=== PATIENT | female | born 1990 | race Caucasian/White ===

== ENCOUNTER 2016-11-01 17:43 | Emergency (ER) | payer BC, MEDICAID ==
[2016-11-01] MEDS ORDERED: NS 0.9% 1000 ML* 1,000 ML IV ONE (18:29)
[2016-11-01] MEDS ORDERED: Ondansetron INJ* 2 MG/ML VIAL IV ONE (18:29)
[2016-11-01] MEDS ORDERED: Ondansetron INJ* 2 MG/ML VIAL ONE (18:30)
[2016-11-01 18:42] LABS: Hematocrit 43 % (35-47); Hemoglobin 13.8 g/dl (12.0-16.0); Mean Corpuscular HGB Conc 33 g/dl (31-36); Mean Corpuscular Hemoglobin 26 pg (27-31); Mean Corpuscular Volume 81 fL (80-97); Mean Platelet Volume 9 um3 (7.4-10.4); Red Blood Count 5.26 10^6/ul (4.0-5.4); Red Cell Distribution Width 17 % (10.5-15); White Blood Count 11.2 10^3/ul (3.5-10.8)
[2016-11-01 19:03] LABS: ALT 16 U/L (7-52); AST 15 U/L (13-39); Albumin 4.2 g/dL (3.2-5.2); Alkaline Phosphatase 57 U/L (34-104); Anion Gap 6 mmol/L (2-11); Blood Urea Nitrogen 13 mg/dL (6-24); C Reactive Protein 14.11 mg/L (< 5.00); CO2 Carbon Dioxide 24 mmol/L (22-32); Chloride 104 mmol/L (101-111); EGFR African American 111.7 (>60); EGFR Non-African American 86.9 (>60); Globulin 3.2 g/dL (2-4); Glucose 96 mg/dL (70-100); Potassium 3.7 mmol/L (3.5-5.0); Sodium 134 mmol/L (133-145); Total Protein 7.4 g/dL (6.4-8.9)
[2016-11-01] MEDS ORDERED: Acetaminophen TAB* 325 MG PO ONE (19:24)
[2016-11-01] MEDS ORDERED: Oseltamivir CAP* 75 MG PO ONE (20:14)
[2016-11-01 20:38] VITALS: BP 111/66
--- NOTE | 2016-11-01 20:52 | ED ---
Terrell Villeda Billy, scribed for Johny Maradiaga MD on 11/01/16 at 1854 . Complex/Multi-Sys Presentation - HPI Summary HPI Summary: Patient is a 26 year-old female coming to [facility] presenting with "flu-like" symptoms since yesterday afternoon. She states that it began with nasal congestion and progressed into fever (TMax 102.6F), chills, and rhinorrhea this morning. She also reports a productive cough and diffuse myalgia. Denies any sore throat or urinary symptoms. - History Of Current Complaint Chief Complaint: EDGeneral Time Seen by Provider: 11/01/16 18:10 Hx Obtained From: Patient, Family/[employer] Onset/Duration: Gradual Onset, Lasting Hours, Still Present Timing: Constant Severity Currently: Moderate Severity Initially: Moderate Aggravating Factor(s): n/a Alleviating Factor(s): n/a Associated Signs And Symptoms: Positive: Cough, Fever, Other - chills, myalgia, rhinorrhea, nasal congestion. Negative: Dysuria - Allergies/Home Medications Allergies/Adverse Reactions: Allergies Allergy/AdvReac Type Severity Reaction Status Date / Time No Known Allergies Allergy Verified 11/01/16 17:56 PMH/Surg Hx/FS Hx/Imm Hx Endocrine/Hematology History: Denies: Hx Diabetes, Hx Thyroid Disease Cardiovascular History: Denies: Hx Hypertension Respiratory History: Reports: Hx Asthma Denies: Hx Chronic Obstructive Pulmonary Disease (COPD) GI History: Denies: Hx Ulcer Infectious Disease History: No Infectious Disease History: Denies: Hx Clostridium Difficile, Hx Hepatitis, Hx Human Immunodeficiency Virus (HIV), Hx of Known/Suspected MRSA, Hx Shingles, Hx Tuberculosis, Hx Known/ Suspected VRE, Hx Known/Suspected VRSA, History Other Infectious Disease, Traveled Outside the [place] in Last 30 Days - Family History Known Family History: Positive: Cardiac Disease, Diabetes, Other - pancreatic cancer - Social History Alcohol Use: None Substance Use Type: Reports: None Smoking Status (MU): Former Smoker Type: Cigarettes Amount Used/How Often: 1 pack/week Length of Time of Smoking/Using Tobacco: 5+ years Have You Smoked in the Last Year: No Review of Systems Positive: Fever, Chills Positive: Nasal Discharge. Negative: Sore Throat Positive: Cough Negative: dysuria Positive: Myalgia All Other Systems Reviewed And Are Negative: Yes Physical Exam - Summary Physical Exam Summary: VITAL SIGNS: Reviewed. GENERAL: Patient is a well developed and nourished female who is lying comfortable in the stretcher. Patient is not in any acute respiratory distress. HEAD AND FACE: No signs of trauma. No ecchymosis, hematomas or skull depressions. No sinus tenderness. EYES: PERRLA, EOMI x 2, No injected conjunctiva, no nystagmus. EARS: Hearing grossly intact. Ear canals and tympanic membranes are within normal limits. MOUTH: Oropharynx within normal limits. NOSE: Positive clear runny nose. NECK: Supple, trachea is midline, no adenopathy, no JVD, no carotid bruit, no c- spine tenderness, neck with full ROM. CHEST: Symmetric, no tenderness at palpation LUNGS: Clear to auscultation bilaterally. No wheezing or crackles. CVS: Regular rate and rhythm, S1 and S2 present, no murmurs or gallops appreciated. ABDOMEN: Soft, non-tender. No signs of distention. No rebound no guarding, and no masses palpated. Bowel sounds are normal. EXTREMITIES: FROM in all major joints, no edema, no cyanosis or clubbing. NEURO: Alert and oriented x 3. No acute neurological deficits. Speech is normal and follows commands. SKIN: Dry and warm Triage Information Reviewed: Yes Vital Signs On Initial Exam: Initial Vitals Temp Pulse Resp BP Pulse Ox 102.2 F 124 18 126/73 100 11/01/16 17:49 11/01/16 17:49 11/01/16 17:49 11/01/16 17:49 11/01/16 17:49 Vital Signs Reviewed: Yes Diagnostics - Vital Signs Vital Signs Temp Pulse Resp BP Pulse Ox 11/01/16 17:49 102.2 F 124 18 126/73 100 - Laboratory Lab Results: Lab Results 11/01/16 Range/Units 18:25 WBC 11.2 H (3.5-10.8) 10^3/ul RBC 5.26 (4.0-5.4) 10^6/ul Hgb 13.8 (12.0-16.0) g/dl Hct 43 (35-47) % MCV 81 (80-97) fL MCH 26 L (27-31) pg MCHC 33 (31-36) g/dl RDW 17 H (10.5-15) % Plt Count 189 (150-450) 10^3/ul MPV 9 (7.4-10.4) um3 Neut % (Auto) 76.3 (38-83) % Lymph % (Auto) 9.7 L (25-47) % [place] % (Auto) 13.1 H (1-9) % Eos % (Auto) 0.4 (0-6) % Baso % (Auto) 0.5 (0-2) % Absolute Neuts (auto) 8.6 H (1.5-7.7) 10^3/ul Absolute Lymphs (auto) 1.1 (1.0-4.8) 10^3/ul Absolute Monos (auto) 1.5 H (0-0.8) 10^3/ul Absolute Eos (auto) 0 (0-0.6) 10^3/ul Absolute Basos (auto) 0.1 (0-0.2) 10^3/ul Absolute Nucleated RBC 0.02 10^3/ul Nucleated RBC % 0.2 Result Diagrams: 11/01/16 18:25 11/01/16 18:25 Lab Statement: Any lab studies that have been ordered have been reviewed, and results considered in the medical decision making process. Re-Evaluation - Re-Evaluation First Eval Re-Evaluation Time: 20:16 Change: Improved Complex Multi-Symp Course/Dx Assessment/Plan: Patient is a 26 year-old female coming to [facility] presenting with "flu-like" symptoms since yesterday afternoon. She states that it began with nasal congestion and progressed into fever (TMax 102.6F), chills, and rhinorrhea this morning. She also reports a productive cough and diffuse myalgia. Denies any sore throat or urinary symptoms. Bloodwork WNL except for WBC of 11.2. CRP of 14.11. Influenza A is positive. Patient was given IV fluids and Tylenol for fever, and Tamiflu for influenza. Patient is feeling better, therefore she will be discharged home to follow up with PCP. - Diagnoses Differential Diagnoses/HQI/PQRI: Other - URI, Sinusitis Provider Diagnoses: Influenza A Discharge - Discharge Plan Condition: Stable Disposition: HOME Prescriptions: Oseltamivir CAP* [Tamiflu CAP*] 75 mg PO BID #10 cap Patient Education Materials: Influenza (ED) Referrals: [facility] REFERRAL [Outside] The documentation as recorded by the Terrell andrade Billy accurately reflects the service I personally performed and the decisions made by me, Johny Maradiaga MD.
== END 2016-11-01 20:39 | disposition home or self-care (01) ==
LOC: ED 17:43
DX: J09.X2 Influenza due to identified novel influenza A virus with other respiratory manifestations (principal); Z87.891 Personal history of nicotine dependence
CPT/HCPCS: 36415; 80053; 83605; 84702; 85025; 86140; 87502; 96361; 96374; 99284; A9270-GY; J2405

== ENCOUNTER 2018-03-03 15:42 | Emergency (ER) | payer OTHER ==
[2018-03-03 17:15] LABS: Hematocrit 39 % (35-47); Hemoglobin 13.1 g/dl (12.0-16.0); Mean Corpuscular HGB Conc 33 g/dl (31-36); Mean Corpuscular Hemoglobin 28 pg (27-31); Mean Corpuscular Volume 83 fL (80-97); Mean Platelet Volume 8.8 um3 (7.4-10.4); Platelet Count 210 10^3/ul (150-450); Red Blood Count 4.73 10^6/ul (4.0-5.4); Red Cell Distribution Width 16 % (10.5-15); White Blood Count 11.1 10^3/ul (3.5-10.8)
[2018-03-03 17:18] LABS: ABS Basophils 0.1 10^3/ul (0-0.2); ABS Eosinophils 0.1 10^3/ul (0-0.6); ABS Lymphocytes 2.9 10^3/ul (1.0-4.8); ABS Monocytes 1.2 10^3/ul (0-0.8); ABS Neutrophils 6.4 10^3/ul (1.5-7.7); ABS Nucleated RBC 0 10^3/ul; Eosinophil % 1.1 % (0-6); Lymphocyte % 27.2 % (25-47); Nucleated Red Blood Cells % 0
[2018-03-03 17:32] LABS: EGFR Non-African American 121.8 (>60)
--- NOTE | 2018-03-03 17:41 | RAD ---
HISTORY: Right lower quadrant pain COMPARISONS: None relevant available time dictation TECHNIQUE: Multiple transverse and longitudinal ultrasound images were obtained of the pelvis using grayscale, color Doppler, and M-Mode Doppler imaging using the endovaginal transducer. FINDINGS: UTERUS: The uterus is normal in shape, size, contour, and echotexture. GESTATION: There is a single live intrauterine gestation. The crown-rump length measures 0.89 cm for a gestational age of 7 weeks, 0 days. The EMIL is October 20, 2018. cardiac motion is detected at a rate of 121 beats per minute. movement is not identified. anatomy cannot be assessed secondary to early dates. The amniotic fluid is qualitatively normal. There are no retroplacental fluid collections. CUL-DE-SAC: There is no free fluid within the cul-de-sac. RIGHT OVARY: The right ovary measures 2.7 x 2.2 x 3 cm. LEFT OVARY: The left ovary measures 2.8 x 1.8 x 2.6 cm. BLADDER: The bladder is not well visualized. IMPRESSION: SINGLE LIVE INTRAUTERINE GESTATION AT 7 WEEKS, 0 DAYS BY CROWN-RUMP LENGTH.
[2018-03-03 20:10] VITALS: BP 98/62
--- NOTE | 2018-03-09 00:17 | ED ---
John Paul Villeda Jennifer, scribed for Ganesh Bahena MD on 03/03/18 at 1642 . - HPI Summary HPI Summary: The patient is a 27 year old female who is about 8 weeks and presents with RLQ abdominal pain for a few days. The patient had a Transvaginal US about two weeks ago where her PCP, Dr. Calhoun, noticed something. He advised the patient to go to the ER if there was any right sided pain or discomfort. The patient describes the pain as cramping from the right hip down to the lower abdomen and denies any radiation of pain. She additionally complains of nausea and vomiting. She denies bleeding, discharge. - History of Current Complaint Chief Complaint: EDOBProblems Stated Complaint: ABD PAIN/VOMITING/8 WKS PREG Hx Obtained From: Patient Chief Complaint: Other: - Transvaginal US 2 weeks ago at PCP showed concern for something - patient does not remember. Her PCP advised she go to the ED if she experienced any right-sided pain. Onset/Duration: Started Days Ago - few days, Still Present Timing: Constant Severity: Mild Current Severity: Mild Pain Intensity: 2 Location of Pain: Right Side Character: Cramping Aggravating Factors: Nothing Alleviating Factors: Nothing Associated Signs and Symptoms: Positive: Other: - nausea, vomiting. NEGATIVE: bleeding, discharge - Assessment Hx Now: Yes SAB: 0 IEA: 0 - Additional Pertinent History Maternal Blood Type and Rh: A Positive - Allergies/Home Medications Allergies/Adverse Reactions: Allergies Allergy/AdvReac Type Severity Reaction Status Date / Time No Known Allergies Allergy Verified 03/03/18 16:08 PMH/Surg Hx/FS Hx/Imm Hx Endocrine/Hematology History: Denies: Hx Diabetes, Hx Thyroid Disease Cardiovascular History: Denies: Hx Hypertension Respiratory History: Reports: Hx Asthma Denies: Hx Chronic Obstructive Pulmonary Disease (COPD) GI History: Denies: Hx Ulcer Infectious Disease History: No Infectious Disease History: Denies: Hx Clostridium Difficile, Hx Hepatitis, Hx Human Immunodeficiency Virus (HIV), Hx of Known/Suspected MRSA, Hx Shingles, Hx Tuberculosis, Hx Known/ Suspected VRE, Hx Known/Suspected VRSA, History Other Infectious Disease, Traveled Outside the [place] in Last 30 Days - Family History Known Family History: Positive: Cardiac Disease, Diabetes, Other - pancreatic cancer - Social History Alcohol Use: None Substance Use Type: Reports: None Smoking Status (MU): Former Smoker Type: Cigarettes Amount Used/How Often: 1 pack/week Length of Time of Smoking/Using Tobacco: 5+ years Have You Smoked in the Last Year: No Review of Systems Positive: Abdominal Pain - RLQ, Vomiting, Nausea Genitourinary: Negative - Vaginal bleeding, discharge All Other Systems Reviewed And Are Negative: Yes Physical Exam - Summary Physical Exam Summary: Appearance: Well-appearing, Well-nourished Skin: Warm Eyes: Normal ENT: Normal Neck: Supple, nontender Respiratory: Clear to auscultation Cardiovascular: Normal S1, S2. No murmurs. Normal distal pulses in tibial and radial bilaterally. Abdomen: Gravid abdomen appropriate for age, mild tenderness to right groin area along inguinal ligament without tenderness or masses Musculoskeletal: Normal, Strength/ROM Intact Neurological: Normal, A&Ox3 Psychiatric: Normal General: No acute distress - Physical Exam Triage Information Reviewed: Yes Vital Signs Reviewed: Yes Diagnostics - Vital Signs Vital Signs Temp Pulse Resp BP Pulse Ox 03/03/18 16:08 97.8 F 65 14 97/59 98 - Laboratory Lab Results: Lab Results 03/03/18 03/03/18 03/03/18 Range/Units 17:05 17:05 17:05 WBC 11.1 H (3.5-10.8) 10^3/ul RBC 4.73 (4.0-5.4) 10^6/ul Hgb 13.1 (12.0-16.0) g/dl Hct 39 (35-47) % MCV 83 (80-97) fL MCH 28 (27-31) pg MCHC 33 (31-36) g/dl RDW 16 H (10.5-15) % Plt Count 210 (150-450) 10^3/ul MPV 8.8 (7.4-10.4) um3 Neut % (Auto) 60.0 (38-83) % Lymph % (Auto) 27.2 (25-47) % [place] % (Auto) 11.2 H (0-7) % Eos % (Auto) 1.1 (0-6) % Baso % (Auto) 0.5 (0-2) % Absolute Neuts (auto) 6.4 (1.5-7.7) 10^3/ul Absolute Lymphs (auto) 2.9 (1.0-4.8) 10^3/ul Absolute Monos (auto) 1.2 H (0-0.8) 10^3/ul Absolute Eos (auto) 0.1 (0-0.6) 10^3/ul Absolute Basos (auto) 0.1 (0-0.2) 10^3/ul Absolute Nucleated RBC 0 10^3/ul Nucleated RBC % 0 APTT (26.0-36.3) seconds Sodium (139-145) mmol/L Potassium (3.5-5.0) mmol/L Chloride (101-111) mmol/L Carbon Dioxide (22-32) mmol/L Anion Gap (2-11) mmol/L BUN (6-24) mg/dL Creatinine (0.51-0.95) mg/dL Est GFR ( Amer) (>60) Est GFR (Non-Af Amer) (>60) BUN/Creatinine Ratio (8-20) Glucose (70-100) mg/dL Lactic Acid 0.6 (0.5-2.0) mmol/L Calcium (8.6-10.3) mg/dL Total Bilirubin (0.2-1.0) mg/dL AST (13-39) U/L ALT (7-52) U/L Alkaline Phosphatase (34-104) U/L Total Protein (6.4-8.9) g/dL Albumin (3.2-5.2) g/dL Globulin (2-4) g/dL Albumin/Globulin Ratio (1-3) Beta HCG, Quant mIU/mL Blood Type A Positive Antibody Screen Negative 03/03/18 03/03/18 Range/Units 17:06 17:06 WBC (3.5-10.8) 10^3/ul RBC (4.0-5.4) 10^6/ul Hgb (12.0-16.0) g/dl Hct (35-47) % MCV (80-97) fL MCH (27-31) pg MCHC (31-36) g/dl RDW (10.5-15) % Plt Count (150-450) 10^3/ul MPV (7.4-10.4) um3 Neut % (Auto) (38-83) % Lymph % (Auto) (25-47) % [place] % (Auto) (0-7) % Eos % (Auto) (0-6) % Baso % (Auto) (0-2) % Absolute Neuts (auto) (1.5-7.7) 10^3/ul Absolute Lymphs (auto) (1.0-4.8) 10^3/ul Absolute Monos (auto) (0-0.8) 10^3/ul Absolute Eos (auto) (0-0.6) 10^3/ul Absolute Basos (auto) (0-0.2) 10^3/ul Absolute Nucleated RBC 10^3/ul Nucleated RBC % APTT 29.2 (26.0-36.3) seconds Sodium 134 L (139-145) mmol/L Potassium 3.7 (3.5-5.0) mmol/L Chloride 104 (101-111) mmol/L Carbon Dioxide 23 (22-32) mmol/L Anion Gap 7 (2-11) mmol/L BUN 12 (6-24) mg/dL Creatinine 0.60 (0.51-0.95) mg/dL Est GFR ( Amer) 156.7 (>60) Est GFR (Non-Af Amer) 121.8 (>60) BUN/Creatinine Ratio 20.0 (8-20) Glucose 87 (70-100) mg/dL Lactic Acid (0.5-2.0) mmol/L Calcium 8.7 (8.6-10.3) mg/dL Total Bilirubin 0.30 (0.2-1.0) mg/dL AST 11 L (13-39) U/L ALT 11 (7-52) U/L Alkaline Phosphatase 35 (34-104) U/L Total Protein 6.8 (6.4-8.9) g/dL Albumin 4.1 (3.2-5.2) g/dL Globulin 2.7 (2-4) g/dL Albumin/Globulin Ratio 1.5 (1-3) Beta HCG, Quant 02216.00 mIU/mL Blood Type Antibody Screen Result Diagrams: 03/03/18 17:05 18 17:06 Lab Statement: Any lab studies that have been ordered have been reviewed, and results considered in the medical decision making process. - Additional Comments Diagnostic Additional Comments: Transvaginal US. Interpreted by a radiologist. IMPRESSION: SINGLE LIVE INTRAUTERINE GESTATION AT 7 WEEKS, 0 DAYS BY CROWN-RUMP LENGTH. Dr. Bahena has reviewed this report. Course/Dx - Course Assessment/Plan: ultrasound unremarkable, viable IUP noted, pt in no acute distress with improved symptoms, instructed to fu with OB as scheduled - Diagnoses Provider Diagnoses: Abdominal pain in Discharge - Sign-Out/Discharge Documenting (check all that apply): Discharge/Admit/Transfer - Discharge Plan Condition: Improved Disposition: HOME Patient Education Materials: Nausea and Vomiting in (ED) Referrals: No Primary Care Phys,NOPCP [Primary Care Provider] - Additional Instructions: PLEASE SEE YOUR OB DOCTOR PREVIOUSLY SCHEDULED PLEASE RETURN TO THE EMERGENCY ROOM IF YOU HAVE ANY WORSENING OR CONCERNING SYMPTOMS PLEASE MAKE AN APPOINTMENT FIRST THING IN THE MORNING TO BE SEEN BY YOUR PRIMARY CARE DOCTOR WITHIN 1 WEEK - Billing Disposition and Condition Condition: IMPROVED Disposition: HOME The documentation as recorded by the John Paul andrade Jennifer accurately reflects the service I personally performed and the decisions made by me, Ganesh Bahena MD.
== END 2018-03-03 20:10 | disposition home or self-care (01) ==
LOC: ED 15:42
DX: O26.891 Other specified pregnancy related conditions, first trimester (principal); R10.31 Right lower quadrant pain; Z3A.01 Less than 8 weeks gestation of pregnancy; Z87.891 Personal history of nicotine dependence
CPT/HCPCS: 36415; 76817; 80053; 83605; 84702; 85025; 85730; 86850; 86900; 86901; 99282

== ENCOUNTER 2018-03-04 20:16 | Emergency (ER) | payer OTHER ==
[2018-03-04] MEDS ORDERED: Ondansetron ODT TAB* 4 MG PO ONE (21:04)
[2018-03-04] MEDS ORDERED: NS 0.9% 1000 ML* 1,000 ML IV ONE (21:04)
[2018-03-04 21:44] LABS: ABS Basophils 0.1 10^3/ul (0-0.2); ABS Eosinophils 0 10^3/ul (0-0.6); ABS Lymphocytes 2.4 10^3/ul (1.0-4.8); ABS Monocytes 0.9 10^3/ul (0-0.8); ABS Neutrophils 8.4 10^3/ul (1.5-7.7); ABS Nucleated RBC 0 10^3/ul; Eosinophil % 0.1 % (0-6); Hematocrit 38 % (35-47); Hemoglobin 12.5 g/dl (12.0-16.0); Mean Corpuscular HGB Conc 33 g/dl (31-36); Mean Corpuscular Hemoglobin 27 pg (27-31); Mean Corpuscular Volume 82 fL (80-97); Mean Platelet Volume 9.2 um3 (7.4-10.4); Nucleated Red Blood Cells % 0; Platelet Count 207 10^3/ul (150-450); Red Cell Distribution Width 16 % (10.5-15); White Blood Count 11.8 10^3/ul (3.5-10.8)
[2018-03-04 21:50] LABS: Urine Appearance Clear; Urine Blood Negative (Negative); Urine Color Yellow; Urine Ketones 2+ (Negative); Urine Protein Negative (Negative); Urine Specific Gravity 1.012 (1.010-1.030); Urine Urobilinogen Negative (Negative)
[2018-03-04 21:57] LABS: EGFR Non-African American 124.2 (>60)
--- NOTE | 2018-03-04 22:08 | ED ---
Nausea/Vomiting/Diarrhea HPI - HPI Summary HPI Summary: Patient history of 7 weeks , complains of persistent N/V 3 days. Patient seen here yesterday for N/V, right lower quadrant pain. US TV yesterday indicated IUP at 7 weeks. Patient states right lower quadrant pain is resolved since yesterday. Denies vaginal bleeding/discharge/pain, abdominal pain, urinary symptoms, fever, peripheral edema, SOB, CP, cough, sore throat, change in BM. , history of one miscarriage. Patient blood type A positive. Medical history is none. Abdominal surgical history is none. Patient states medical records show patient has had appendectomy, but states she still has her appendix. Prior [facility] evaluation with ultrasound unremarkable. Next [facility] appointment March 14. - History of Current Complaint Chief Complaint: EDGeneral Stated Complaint: 8 WKS PREG/NAUSEA Time Seen by Provider: 03/04/18 20:44 Hx Obtained From: Patient Hx Last Menstrual Period: 2 weeks ago Onset/Duration: Gradual Onset Timing: Intermittent Episodes Lasting: Severity Currently: None Pain Intensity: 0 Nausea/Vomiting Presence: Nauseated Nausea/Vomiting Duration: 24-36 hours Vomiting Characteristics: Nonbilious Diarrhea Presence: No - Allergies/Home Medications Allergies/Adverse Reactions: Allergies Allergy/AdvReac Type Severity Reaction Status Date / Time No Known Allergies Allergy Verified 03/03/18 16:08 PMH/Surg Hx/FS Hx/Imm Hx Endocrine/Hematology History: Denies: Hx Diabetes, Hx Thyroid Disease Cardiovascular History: Denies: Hx Hypertension Respiratory History: Reports: Hx Asthma Denies: Hx Chronic Obstructive Pulmonary Disease (COPD) GI History: Denies: Hx Ulcer Infectious Disease History: No Infectious Disease History: Denies: Hx Clostridium Difficile, Hx Hepatitis, Hx Human Immunodeficiency Virus (HIV), Hx of Known/Suspected MRSA, Hx Shingles, Hx Tuberculosis, Hx Known/ Suspected VRE, Hx Known/Suspected VRSA, History Other Infectious Disease, Traveled Outside the [place] in Last 30 Days - Family History Known Family History: Positive: Cardiac Disease, Diabetes, Other - pancreatic cancer - Social History Alcohol Use: None Substance Use Type: Reports: None Smoking Status (MU): Former Smoker Type: Cigarettes Amount Used/How Often: 1 pack/week Length of Time of Smoking/Using Tobacco: 5+ years Have You Smoked in the Last Year: No Review of Systems Constitutional: Negative Eyes: Negative ENT: Negative Cardiovascular: Negative Respiratory: Negative Positive: Vomiting, Nausea Genitourinary: Negative Musculoskeletal: Negative Skin: Negative Neurological: Negative Psychological: Normal All Other Systems Reviewed And Are Negative: Yes Physical Exam Triage Information Reviewed: Yes Vital Signs On Initial Exam: Initial Vitals Temp Pulse Resp BP Pulse Ox 98.2 F 74 16 101/66 98 03/04/18 20:20 03/04/18 20:20 03/04/18 20:20 03/04/18 20:20 03/04/18 20:20 Vital Signs Reviewed: Yes Appearance: Positive: Well-Appearing Skin: Positive: Warm Head/Face: Positive: Normal Head/Face Inspection Eyes: Positive: Normal Neck: Positive: Supple Respiratory/Lung Sounds: Positive: Clear to Auscultation Cardiovascular: Positive: Normal Abdomen Description: Positive: Nontender Musculoskeletal: Positive: Normal Neurological: Positive: Normal Psychiatric: Positive: Normal AVPU Assessment: Alert - [place] Coma Scale Best Eye Response: 4 - Spontaneous Best Motor Response: 6 - Obeys Commands Best Verbal Response: 5 - Oriented Coma Scale Total: 15 Diagnostics - Vital Signs Vital Signs Temp Pulse Resp BP Pulse Ox 03/04/18 21:31 106/67 03/04/18 20:20 98.2 F 74 16 101/66 98 - Laboratory Lab Results: Lab Results 03/04/18 03/04/18 03/04/18 Range/Units 21:23 21:23 21:23 WBC 11.8 H (3.5-10.8) 10^3/ul RBC 4.60 (4.0-5.4) 10^6/ul Hgb 12.5 (12.0-16.0) g/dl Hct 38 (35-47) % MCV 82 (80-97) fL MCH 27 (27-31) pg MCHC 33 (31-36) g/dl RDW 16 H (10.5-15) % Plt Count 207 (150-450) 10^3/ul MPV 9.2 (7.4-10.4) um3 Neut % (Auto) 71.5 (38-83) % Lymph % (Auto) 20.0 L (25-47) % [place] % (Auto) 8.0 H (0-7) % Eos % (Auto) 0.1 (0-6) % Baso % (Auto) 0.4 (0-2) % Absolute Neuts (auto) 8.4 H (1.5-7.7) 10^3/ul Absolute Lymphs (auto) 2.4 (1.0-4.8) 10^3/ul Absolute Monos (auto) 0.9 H (0-0.8) 10^3/ul Absolute Eos (auto) 0 (0-0.6) 10^3/ul Absolute Basos (auto) 0.1 (0-0.2) 10^3/ul Absolute Nucleated RBC 0 10^3/ul Nucleated RBC % 0 Sodium 135 L (139-145) mmol/L Potassium 3.5 (3.5-5.0) mmol/L Chloride 104 (101-111) mmol/L Carbon Dioxide 23 (22-32) mmol/L Anion Gap 8 (2-11) mmol/L BUN 11 (6-24) mg/dL Creatinine 0.59 (0.51-0.95) mg/dL Est GFR ( Amer) 159.7 (>60) Est GFR (Non-Af Amer) 124.2 (>60) BUN/Creatinine Ratio 18.6 (8-20) Glucose 88 (70-100) mg/dL Calcium 9.1 (8.6-10.3) mg/dL Total Bilirubin 0.60 (0.2-1.0) mg/dL AST 12 L (13-39) U/L ALT 12 (7-52) U/L Alkaline Phosphatase 41 (34-104) U/L Total Protein 7.1 (6.4-8.9) g/dL Albumin 4.1 (3.2-5.2) g/dL Globulin 3.0 (2-4) g/dL Albumin/Globulin Ratio 1.4 (1-3) Urine Color Yellow Urine Appearance Clear Urine pH 6.0 (5-9) Ur Specific [place] 1.012 (1.010-1.030) Urine Protein Negative (Negative) Urine Ketones 2+ A (Negative) Urine Blood Negative (Negative) Urine Nitrate Negative (Negative) Urine Bilirubin Negative (Negative) Urine Urobilinogen Negative (Negative) Ur Leukocyte Esterase Trace A (Negative) Urine WBC (Auto) Trace(0-5/hpf) (Absent) Urine RBC (Auto) Trace(0-2/hpf) (Absent) Ur Squamous Epith Cells Present A (Absent) Urine Bacteria Absent (Absent) Urine Glucose Negative (Negative) Result Diagrams: 03/04/18 21:23 03/04/18 21:23 Lab Statement: Any lab studies that have been ordered have been reviewed, and results considered in the medical decision making process. Re-Evaluation - Re-Evaluation 1 Re-Evaluation Time: 22:22 Comment: Nausea controlled with Zofran. Naus/Vom/Diarrhea Course/Dx - Course Course Of Treatment: Nausea and vomiting 2-3 days. Pt concerned for dehydration. Vital signs and Labs unremarkable. Ultrasound done yesterday. Nausea controlled with Zofran ODT as we do not have Zofran IV.. Will be given prescription for Phenergan. Follow up with [facility]. - Differential Dx/Diagnosis Provider Diagnoses: Nausea vomiting. Condition At Discharge: Stable Discharge - Sign-Out/Discharge Documenting (check all that apply): Discharge/Admit/Transfer - Discharge Plan Condition: Stable Disposition: HOME Prescriptions: Promethazine TAB* [Phenergan TAB*] 25 mg PO Q8H PRN 5 Days #20 tab PRN Reason: Nausea Patient Education Materials: Nausea and Vomiting in (ED) Referrals: No Primary Care Phys,NOPCP [Primary Care Provider] - Additional Instructions: Follow-up with your [facility]. Return to the ED for any new or worsening symptoms - Billing Disposition and Condition Condition: STABLE Disposition: HOME
[2018-03-04 22:54] VITALS: BP 107/66
== END 2018-03-04 22:55 | disposition home or self-care (01) ==
LOC: ED 20:16
DX: O21.0 Mild hyperemesis gravidarum (principal); Z3A.01 Less than 8 weeks gestation of pregnancy; Z87.891 Personal history of nicotine dependence
CPT/HCPCS: 36415; 80053; 81003; 81015; 85025; 87086; 96360; 99283; A9270-GY

== ENCOUNTER 2018-05-13 17:26 | Emergency (ER) | payer OTHER ==
--- NOTE | 2018-05-13 20:09 | ED ---
- HPI Summary HPI Summary: This is lupe Lee documenting for attending Johny Maradiaga MD. This patient is a 27 year old F presenting to [facility] accompanied by her partner with a chief complaint of intermittent cramping abdominal pain since 10:00 today. The patient reports that the pain typically lasts for about 10 minutes. The patient reports the pain began in her lower abdomen and travelled up the middle of her abdomen. The patient rates the pain 3/10 in severity. Symptoms aggravated by nothing. Symptoms alleviated by nothing. Patient reports normal vaginal discharge. Patient denies vaginal bleeding. The patient is 17 weeks . The patient notes that this is her third and she has two kids at home. - History of Current Complaint Chief Complaint: EDOBProblems Stated Complaint: CRAMPING/17 WKS PREG Time Seen by Provider: 05/13/18 19:50 Hx Obtained From: Patient Onset/Duration: Started Hours Ago, Atraumatic, Still Present Timing: Intermittent Severity: Mild Current Severity: Mild Pain Intensity: 3 Location of Pain: Diffuse Character: Cramping Aggravating Factors: Nothing Alleviating Factors: Nothing Associated Signs and Symptoms: Positive: Vaginal Bleeding or Discharge - normal vaginal discharge, negative vaginal bleeding - Assessment Hx Now: Yes SAB: 0 IEA: 0 - Additional Pertinent History Maternal Blood Type and Rh: A Positive - Allergies/Home Medications Allergies/Adverse Reactions: Allergies Allergy/AdvReac Type Severity Reaction Status Date / Time No Known Allergies Allergy Verified 03/03/18 16:08 Home Medications: Home Medications 21/Iron Fu/Folic Acid [ Complete] 1 tab PO DAILY 05/13/18 [ History Confirmed 05/13/18] PMH/Surg Hx/FS Hx/Imm Hx Endocrine/Hematology History: Denies: Hx Diabetes, Hx Thyroid Disease Cardiovascular History: Denies: Hx Hypertension Respiratory History: Reports: Hx Asthma Denies: Hx Chronic Obstructive Pulmonary Disease (COPD) GI History: Denies: Hx Ulcer Infectious Disease History: No Infectious Disease History: Denies: Hx Clostridium Difficile, Hx Hepatitis, Hx Human Immunodeficiency Virus (HIV), Hx of Known/Suspected MRSA, Hx Shingles, Hx Tuberculosis, Hx Known/ Suspected VRE, Hx Known/Suspected VRSA, History Other Infectious Disease, Traveled Outside the [place] in Last 30 Days - Family History Known Family History: Positive: Cardiac Disease, Diabetes, Other - pancreatic cancer - Social History Alcohol Use: None Substance Use Type: Reports: None Smoking Status (MU): Former Smoker Type: Cigarettes Amount Used/How Often: 1 pack/week Length of Time of Smoking/Using Tobacco: 5+ years Have You Smoked in the Last Year: No Review of Systems Negative: Fever Negative: Epistaxis Positive: Abdominal Pain Genitourinary: Negative - negative vaginal bleeding Positive: discharge - normal vaginal discharge All Other Systems Reviewed And Are Negative: Yes Physical Exam - Summary Physical Exam Summary: VITAL SIGNS: Reviewed. GENERAL: Patient is a well-developed and nourished FEMALE who is lying comfortable in the stretcher. Patient is not in any acute respiratory distress. HEAD AND FACE: No signs of trauma. No ecchymosis, hematomas or skull depressions. No sinus tenderness. EYES: PERRLA, EOMI x 2, No injected conjunctiva, no nystagmus. EARS: Hearing grossly intact. Ear canals and tympanic membranes are within normal limits. MOUTH: Oropharynx within normal limits. NECK: Supple, trachea is midline, no adenopathy, no JVD, no carotid bruit, no c- spine tenderness, neck with full ROM. CHEST: Symmetric, no tenderness at palpation LUNGS: Clear to auscultation bilaterally. No wheezing or crackles. CVS: Regular rate and rhythm, S1 and S2 present, no murmurs or gallops appreciated. ABDOMEN: Soft, non-tender. No signs of distention. No rebound no guarding, and no masses palpated. Bowel sounds are normal. Abdominal distension above the umbilicus secondary to EXTREMITIES: FROM in all major joints, no edema, no cyanosis or clubbing. NEURO: Alert and oriented x 3. No acute neurological deficits. Speech is normal and follows commands. SKIN: Dry and warm - Physical Exam Triage Information Reviewed: Yes Vital Signs Reviewed: Yes Diagnostics - Vital Signs Vital Signs Temp Pulse Resp BP Pulse Ox 05/13/18 19:37 80 109/72 97 05/13/18 17:39 97.6 F 75 16 104/66 98 - Laboratory Result Diagrams: 05/13/18 20:24 05/13/18 20:24 Lab Statement: Any lab studies that have been ordered have been reviewed, and results considered in the medical decision making process. Course/Dx - Course Assessment/Plan: This patient is a 27 year old F presenting to [facility] accompanied by her partner with a chief complaint of intermittent cramping abdominal pain since 10:00 today. The patient reports that the pain typically lasts for about 10 minutes. The patient reports the pain began in her lower abdomen and travelled up the middle of her abdomen. The patient rates the pain 3 /10 in severity. Symptoms aggravated by nothing. Symptoms alleviated by nothing. Patient reports normal vaginal discharge. Patient denies vaginal bleeding. The patient is 17 weeks . The patient notes that this is her third and she has two kids at home. Patient is . Blood test results without any significant abnormality, urinalysis seems to be contaminated. Therefore we will send urine for cultures. heart rate is at 150 bpm. At this time I did not perform a pelvic exam since the patient does have any vaginal discharge. ultrasound performed. The result is pending. In the ED course the patient was hydrated with IV fluids. The patient is here medically stable. I discussed the case Dr. Burciaga form Ob and recommends to repeat urine . Patient will be signed out to Dr. Boland at shift change. If the ultrasound is normal he will consult with HEAD CHAR FILTER TANK TENDER and the patient will be discharged home with follow-up with primary care physician and ENERGY TRADING ANALYST. - Diagnoses Provider Diagnoses: Abdominal cramping, Intrauterine - Provider Notifications Discussed Care Of Patient With: Letty Burciaga Time Discussed With Above Provider: 21:44 Instructed by Provider To: Other - Dr. Burciaga wants the patient to give another urine sample. If the results of this urine sample are normal, she recommends that the patient be discharged home. Discharge - Sign-Out/Discharge Documenting (check all that apply): Patient Departure - Discharge Plan Condition: Stable Disposition: HOME Patient Education Materials: Acute Abdominal Pain (ED) Referrals: [facility] [place] [facility] [Outside] - 2 Days Additional Instructions: RETURN TO ED FOR ANY NEW OR WORSENING SYMPTOMS. - Billing Disposition and Condition Condition: STABLE Disposition: Home
[2018-05-13] MEDS ORDERED: NS 0.9% 1000 ML* 1,000 ML IV ONE (20:11)
[2018-05-13 20:42] LABS: ABS Basophils 0.1 10^3/ul (0-0.2); ABS Eosinophils 0.2 10^3/ul (0-0.6); ABS Lymphocytes 2.9 10^3/ul (1.0-4.8); ABS Monocytes 1.3 10^3/ul (0-0.8); ABS Neutrophils 8.5 10^3/ul (1.5-7.7); ABS Nucleated RBC 0 10^3/ul; Eosinophil % 1.6 % (0-6); Hematocrit 36 % (35-47); Hemoglobin 12.1 g/dl (12.0-16.0); Lymphocyte % 22.5 % (25-47); Mean Corpuscular HGB Conc 33 g/dl (31-36); Mean Corpuscular Hemoglobin 28 pg (27-31); Mean Corpuscular Volume 83 fL (80-97); Mean Platelet Volume 9.4 um3 (7.4-10.4); Nucleated Red Blood Cells % 0.1; Platelet Count 185 10^3/ul (150-450); Red Blood Count 4.38 10^6/ul (4.00-5.40); Red Cell Distribution Width 16 % (10.5-15)
[2018-05-13 21:03] LABS: EGFR Non-African American 129.2 (>60)
[2018-05-13 21:07] LABS: Urine Appearance Clear; Urine Blood Negative (Negative); Urine Color Yellow; Urine Ketones Negative (Negative); Urine Protein Negative (Negative); Urine Red Blood Cell Trace(0-2/hpf) (Absent); Urine Specific Gravity 1.018 (1.010-1.030); Urine Urobilinogen Negative (Negative); Urine White Blood Cell 2+(11-20/hpf) (Absent)
[2018-05-13 22:48] LABS: Urine Appearance Clear; Urine Blood Negative (Negative); Urine Color Yellow; Urine Ketones 1+ (Negative); Urine Protein Negative (Negative); Urine Specific Gravity 1.015 (1.010-1.030); Urine Urobilinogen Negative (Negative)
[2018-05-13 23:17] VITALS: BP 106/70
--- NOTE | 2018-05-13 23:21 | ED ---
Progress - Progress Note Progress Note: Urinalysis came back normal. US was negative. Pt was diagnosed with abdominal cramping and intrauterine . Pt was discharged home and agreeable with this plan. Course/Dx - Diagnoses Provider Diagnoses: Abdominal cramping, Intrauterine Discharge - Sign-Out/Discharge Documenting (check all that apply): Patient Departure - Discharge - Discharge Plan Condition: Stable Disposition: HOME Patient Education Materials: Acute Abdominal Pain (ED) Referrals: [facility] [place] [facility] [Outside] - 2 Days Additional Instructions: RETURN TO ED FOR ANY NEW OR WORSENING SYMPTOMS. - Billing Disposition and Condition Condition: STABLE Disposition: Home
--- NOTE | 2018-05-14 07:56 | RAD ---
HISTORY: Abdominal cramping, 17 weeks . The gestational age by previous ultrasound is: 17 weeks, 2 days COMPARISONS: March 03, 2018 TECHNIQUE: Multiple transverse and longitudinal ultrasound images were obtained of the gravid uterus using Grayscale, color Doppler, spectral Doppler, and M-mode Doppler imaging. FINDINGS: /PLACENTAL EVALUATION: Number of fetuses: Single Presentation: Cephalic cardiac activity: 138 bpm Gross motion: Observed Placenta position: Posterior Amniotic fluid volume: Normal SHEILA: 11.16 cm BIOMETRY: Biparietal diameter: 3.76 cm 17 weeks, 4 days Head circumference: 14.09 cm 17 weeks, 3 days Abdominal circumference: 12.36. cm 17 weeks, 5 days Femur length: 2.36 cm 17 weeks, 1 day HC/AC: 1.14 Estimated weight: 200 grams, +/- 29 grams GESTATIONAL AGE: The composite gestational age is: 17 weeks, 4 days. The EMIL is: October 17, 2018.. This is concordant with age by previous ultrasound ANATOMY: cranium: Not evaluated ventricles: Not evaluated choroid plexus: Not evaluated cerebellum: Not evaluated posterior fossa: Not evaluated face/orbits/lips: Not evaluated spine: Not evaluated heart: Normal 4 chamber diaphragm: Not evaluated stomach: Within normal limits kidneys: Not evaluated bladder: Not evaluated cord: Not evaluated CERVIX: The cervix is long and closed, without funneling.. The cervix measures 4.7 cm. OTHER: None IMPRESSION: SINGLE LIVE INTRAUTERINE GESTATION AT 17 WEEKS, 4 DAYS BY COMPOSITE GESTATIONAL AGE. LIMITED EVALUATION OF ANATOMY. R0
== END 2018-05-13 23:40 | disposition home or self-care (01) ==
LOC: ED 17:26
DX: O26.892 Other specified pregnancy related conditions, second trimester (principal); R10.30 Lower abdominal pain, unspecified; Z3A.17 17 weeks gestation of pregnancy; Z82.49 Family history of ischemic heart disease and other diseases of the circulatory system; Z83.3 Family history of diabetes mellitus; Z80.0 Family history of malignant neoplasm of digestive organs; Z87.891 Personal history of nicotine dependence
CPT/HCPCS: 36415; 76815; 80053; 81003; 81015; 85025; 86850; 86900; 86901; 87086; 96360; 99283

== ENCOUNTER 2018-10-06 07:45 | Inpatient (IN) | payer OTHER ==
[2018-10-06] MEDS ORDERED: Lactated Ringers 1000 ML Bag* 1,000 ML IV ONE ×2 (09:52→21:53)
[2018-10-06] MEDS ORDERED: Dinoprostone* 10 MG VAG.SUPP VAGINAL ONE (09:52)
[2018-10-06] MEDS ORDERED: Lactated Ringers 1000 ML Bag* 1,000 ML IV SCH ×3 (10:00→23:00)
--- NOTE | 2018-10-06 10:08 | HP ---
General Information - Reason for Visit preeclampsia, 38weeks EGA, Induction of labor - General Information Maternal Age: 28 Grav: 3 Para: 2 SAB: 0 IEA: 0 Estimated Due Date: 10/20/18 Determined By: LMP Maternal Blood Type and Rh: A Positive - Results this Serology/RPR Result: Non-Reactive Rubella Result: Immune HBsAg Result: Negative HIV Result: Negative GBS Culture Result: Negative Past Medical History Delivery History: Hx Uncomplicated Vaginal Delivery Pertinent Past Medical History: Non-Contributory Pertinent Past Surgical History: None Pertinent Family History: See Records - thyroid, pancreatic CA - Antepartal Records Antepartal Records: Reviewed, Complicated by: - preeclampsia Review of Systems Constitutional: Comfortable CV Complaint: No Respiratory: Shortness of Breath: No Gastrointestinal: No Nausea/Vomiting, Normal Bowel Movement Genitourinary: No Dysuria, No Bleeding, No Leaking Fluid Musculoskeletal: No Complaint, No Epigastric Pain Neurological: No Headache, No Visual Changes Movement: Normal - Comments edema Exam Allergies/Adverse Reactions: Allergies No Known Allergies Allergy (Verified 10/06/18 09:08) T: 98.4, P:73, R:20, BP: 129/87, O2:98% Lab Values - Entire Visit: pending repeat CBC and CMP. Laboratory Tests 10/05/18 10/05/18 10/05/18 12:58 12:58 12:58 Plt Count 161 AST 18 ALT 13 Ur Total Protein 24 Hr 352 H - Measurements Height: 5 ft 2 in Weight: 189 lb Weight in lbs: 189.924320 Body Mass Index (BMI): 34.5 Pre- Weight: 130 lb Weight Gained This : 59 lbs and 0 ozs - Exam Breast: Breast Exam Deferred CVA: No CVA Tenderness Extremities: Edema - +2 Heart: Normal Rhythm/Heart Sounds HEENT: No Significant Findings Lungs: Clear Bilaterally Rectal: Rectal Exam Deferred Reflexes: DTR 2+ Thyroid: No Thyromegaly - Abdominal Exam Abdomen Exam: Fundal Height Consistent with Dates - Ultrasound/Biophysical Profile Ultrasound Status: Not Done Targeted Exam Findings Estimated Weight: 7lbs 10oz Cervical Exam: 1cm Effacement: 60% Station: Ballotable Presenting Part: Vertex Membrane Status: Intact Bleeding/Discharge: None EFM Findings - External Monitor Findings Baseline Heart Rate: 130 External Monitor Findings: Accelerations Present, No Pattern of Variable or Late Decelerations, Variability Moderate, Baseline Stable Contractions: Irregular, Mild, < 45 Seconds Contraction Frequency: q 10-15 min Assessment/Plan - Assessment 28 y.o. at 38weeks EGA, mild preeclampsia, induction of labor - Obstetrical Risk Factors Obstetrical Risk Factors: PreEclampsia - Plan Plan: Induction, Cervical Ripening - Date/Time of Admission Date of Admission: 10/06/18 Time of Admission: 08:00
[2018-10-06 10:18] LABS: ABS Basophils 0.1 10^3/ul (0-0.2); ABS Eosinophils 0.1 10^3/ul (0-0.6); ABS Lymphocytes 3.5 10^3/ul (1.0-4.8); ABS Monocytes 1.3 10^3/ul (0-0.8); ABS Neutrophils 7.7 10^3/ul (1.5-7.7); ABS Nucleated RBC 0 10^3/ul; Eosinophil % 0.6 %; Hematocrit 37 % (35-47); Hemoglobin 12.2 g/dl (12.0-16.0); Lymphocyte % 27.4 %; Mean Corpuscular HGB Conc 33 g/dl (31-36); Mean Corpuscular Hemoglobin 27 pg (27-31); Mean Corpuscular Volume 84 fL (80-97); Mean Platelet Volume 10.4 fL (7.4-10.4); Nucleated Red Blood Cells % 0.1; Platelet Count 155 10^3/ul (150-450); Red Blood Count 4.45 10^6/ul (4.00-5.40); Red Cell Distribution Width 19 % (10.5-15); White Blood Count 12.7 10^3/ul (3.5-10.8)
[2018-10-06 10:34] LABS: BUN/Creatinine Ratio 13.3 (8-20); Calcium 8.7 mg/dL (8.6-10.3); EGFR Non-African American 83.1 (>60); Globulin 2.9 g/dL (2-4); Potassium 4.1 mmol/L (3.5-5.0); Total Bilirubin 0.3 mg/dL (0.2-1.0); Total Protein 5.9 g/dL (6.4-8.9)
--- NOTE | 2018-10-06 16:00 | PN ---
Progress Note - Progress Note Date of Service: 10/06/18 SOAP: Subjective: [pt reports ctx spaced out after removal of cervidil. Pt reports increased pressure, -LOF, -VB, +FM.] Objective: [BP:121/73, P:75, R:20, T:98.4, Cervix: 4-5/70/ballotable unintentional AROM copious clear fluid FHT: 130bpm, + accels, -decels, +moderate variability] Assessment: [28 y.o. , Cat I tracing, active labor] Plan: [1) Anticipate vaginal delivery 2) position changes for descent]
[2018-10-06] MEDS ORDERED: Calcium Carbonate CHEW TAB* 500 MG (TUMS) PO PRN (16:21)
[2018-10-06] MEDS ORDERED: fentaNYL* 50 MCG/ML 2 ML VIAL (100 MCG VIAL) ONE (18:56)
[2018-10-06] MEDS ORDERED: Phenylephrine INJ* 10 MG/ML 1 ML VIAL (10 MG) ONE (19:08)
--- NOTE | 2018-10-06 19:23 | PN ---
Progress Note - Progress Note Date of Service: 10/06/18 SOAP: Subjective: [Pt with uncontrollable urge to push for several hours. Position changes used with no relief, nitrous oxide used with no relief. Pt requests additional pain mgm and intrathecal was requested with rapid improvement in pain. ] Objective: [P: 90, BP: 110/56, cervix: 8/80/-1 FHT: 115 bpm, +accels, -decels, moderate variability] Assessment: [28 y.o. , mild preeclampia, active labor] Plan: [1) Position changes for descent 2) Revaluate PRN]
[2018-10-06] MEDS ORDERED: Acetaminophen TAB* 325 MG ONE (20:53)
[2018-10-06] MEDS ORDERED: OBEPIDURAL* 250 ML EPIDURAL ONE (21:21)
[2018-10-06] MEDS ORDERED: Famotidine TAB* 20 MG PO PRN (21:53)
[2018-10-06] MEDS ORDERED: Phenylephrine IV* 40 MCG/ML 10 ML SYRINGE IV PUSH PRN ×2 (21:53)
[2018-10-06] MEDS ORDERED: Sodium Citrate/Citric Acid* 15 ML UDC PO PRN (21:53)
[2018-10-06] MEDS ORDERED: Oxytocin in LR* 20 UNITS/1,000 ML BAG IVPB ONE (21:54)
[2018-10-06] MEDS ORDERED: OBEPIDURAL* 250 ML EPIDURAL SCH (22:00)
[2018-10-06] MEDS ORDERED: Witch Hazel PAD* JAR TOPICAL PRN (22:06)
[2018-10-06] MEDS ORDERED: Glycerin ADULT SUPP PR PRN (22:06)
[2018-10-06] MEDS ORDERED: Acetaminophen TAB* 325 MG PO PRN (22:06)
[2018-10-06] MEDS ORDERED: Dibucaine 1% 28.35 GM TUBE PR PRN (22:06)
--- NOTE | 2018-10-06 22:06 | PROCNOTE ---
[facility] OB: Delivery Note - Delivery A Date of : 10/06/18 Time of : 21:51 Sex: Male Score 1 Minute: 9 Score 5 Minutes: 9 Gestational Age in Weeks and Days at Delivery: 38 Weeks and 0 Days Delivery Method: Spontaneous Vaginal Labor: Induced Amniotic Fluid: Clear Estimated Blood Loss: 150 Anesthesia/Analgesia: CEI for Labor, Nitrous-Labor Delivered By: Inessa Woodard - Nursery Level of Nursery: Regular/Bedside - Perineum Perineal Injury: None/Intact Perineal Repair: By Delivering Practioner - Events Delivery Events of Note: Pitocin Only After Delivery - Additional Delivery Notes Additional Delivery Notes: nuchal cord x 1
[2018-10-06] MEDS ORDERED: Oxytocin in LR* 20 UNITS/1,000 ML BAG IVPB SCH (23:00)
[2018-10-06] MEDS: Ibuprofen TAB* 600 MG PO PRN (23:21)
[2018-10-07 06:40] LABS: Hematocrit 32 % (35-47); Hemoglobin 10.4 g/dl (12.0-16.0); Mean Corpuscular HGB Conc 32 g/dl (31-36); Mean Corpuscular Hemoglobin 27 pg (27-31); Mean Corpuscular Volume 84 fL (80-97); Mean Platelet Volume 10.4 fL (7.4-10.4); Platelet Count 129 10^3/ul (150-450); Red Blood Count 3.85 10^6/ul (4.00-5.40); Red Cell Distribution Width 19 % (10.5-15); White Blood Count 22.1 10^3/ul (3.5-10.8)
[2018-10-07 07:23] LABS: ABS Basophils 0.1 10^3/ul (0-0.2); ABS Eosinophils 0 10^3/ul (0-0.6); ABS Lymphocytes 3.4 10^3/ul (1.0-4.8); ABS Monocytes 2.1 10^3/ul (0-0.8); ABS Neutrophils 16.5 10^3/ul (1.5-7.7); ABS Nucleated RBC 0 10^3/ul; Eosinophil % 0.1 %; Lymphocyte % 15.3 %; Nucleated Red Blood Cells % 0.1
[2018-10-07] MEDS ORDERED: Simethicone TAB* 80 MG TAB.CHEW PO SCH (08:30)
[2018-10-07] MEDS: Docusate CAP* 100 MG PO SCH ×3 (08:38→21:30)
[2018-10-07] MEDS ORDERED: Ferrous Gluconate TAB* 324 MG TAB PO SCH (09:00)
[2018-10-07] MEDS: Ibuprofen TAB* 600 MG PO PRN ×2 (12:08→18:05)
[2018-10-08] MEDS: Ibuprofen TAB* 600 MG PO PRN (00:54)
[2018-10-08 07:45] VITALS: BP 128/73
[2018-10-08] MEDS: Docusate CAP* 100 MG PO SCH (08:57)
[2018-10-08] MEDS ORDERED: medroxyPROGESTERone ACETATE (DEPOT)* 150 MG/ML 1 ML IM ONE (10:24)
== END 2018-10-08 12:10 | disposition home or self-care (01) | DRG 560 ==
LOC: MCHOBOUT 07:45 → MCHOB 10:25
PROVIDERS: ADMIT Midwife; ATTEND Midwife
PROC: 10907ZC Drainage of Amniotic Fluid, Therapeutic from Products of Conception, Via Natural or Artificial Opening (ICD-10-PCS; principal; 2018-10-06)
PROC: 3E0P7VZ Introduction of Hormone into Female Reproductive, Via Natural or Artificial Opening (ICD-10-PCS; 2018-10-06)
PROC: 4A1HXCZ Monitoring of Products of Conception, Cardiac Rate, External Approach (ICD-10-PCS; 2018-10-06)
PROC: 10E0XZZ Delivery of Products of Conception, External Approach (ICD-10-PCS; 2018-10-06)
DX: O14.04 Mild to moderate pre-eclampsia, complicating childbirth (principal); Z37.0 Single live birth; O69.81X0 Labor and delivery complicated by cord around neck, without compression, not applicable or unspecified; Z3A.38 38 weeks gestation of pregnancy
CPT/HCPCS: 36415; 80053; 85025; 86850; 86900; 86901; A9270-GY; J1050; J3010

== ENCOUNTER 2019-01-30 05:39 | Day surgery (SDC) | payer OTHER ==
[~2019-01-30 05:39] MED LIST: Buffered Lidocaine 1% SYRIN* 1 ML/SYRINGE INTRADERM ONE
[2019-01-30] MEDS ORDERED: Gabapentin CAP(*) 300 MG PO ONE (06:00)
[2019-01-30] MEDS ORDERED: Acetaminophen TAB* 325 MG PO ONE (06:00)
[2019-01-30] MEDS ORDERED: Lactated Ringers 1000 ML Bag* 1,000 ML IV SCH (06:00)
[2019-01-30] MEDS ORDERED: Acetaminophen TAB* 325 MG ONE (06:24)
[2019-01-30] MEDS ORDERED: Buffered Lidocaine 1% SYRIN* 1 ML/SYRINGE INTRADERM ONE (06:24)
[2019-01-30] MEDS ORDERED: Gabapentin CAP(*) 300 MG ONE (06:24)
[2019-01-30] MEDS ORDERED: Bupivacaine 0.5% W/EPI SDV* 30 ML VIAL ONE (06:50)
[2019-01-30] MEDS ORDERED: fentaNYL* 50 MCG/ML 2 ML VIAL (100 MCG VIAL) ONE ×3 (07:12→08:50)
[2019-01-30] MEDS ORDERED: Midazolam* 1 MG/ML 2 ML VIAL (2 MG) ONE (07:13)
[2019-01-30] MEDS ORDERED: Famotidine IV* 10 MG/ML 2 ML (20 mg) ONE (07:25)
[2019-01-30] MEDS ORDERED: Ketorolac INJ* 30 MG/ML 1 ML VIAL ONE (07:37)
[2019-01-30] MEDS ORDERED: Dexamethasone IV* 4 MG/ML 1 ML (4 MG) ONE (07:37)
[2019-01-30] MEDS ORDERED: Cisatracurium* 2 MG/ML MDV 5 ML ONE (07:37)
[2019-01-30] MEDS ORDERED: Propofol* 10 MG/ML 20 ML BTL ONE (07:37)
[2019-01-30] MEDS ORDERED: Ondansetron INJ* 2 MG/ML VIAL ONE ×2 (07:37→10:06)
[2019-01-30] MEDS ORDERED: Succinylcholine* 20 MG/ML 10 ML VIAL ONE (07:37)
[2019-01-30] MEDS ORDERED: PROCHLORPERAZINE INJ 5 MG/ML 2 ML VIAL IV PRN (07:58)
[2019-01-30] MEDS ORDERED: Naloxone* 0.4 MG/ML 1 ML VIAL IV PRN (07:58)
[2019-01-30] MEDS ORDERED: fentaNYL* 50 MCG/ML 2 ML VIAL (100 MCG VIAL) IV PRN (07:58)
[2019-01-30] MEDS ORDERED: Levalbuterol 0.63MG/3ML NEB* UNIT OF USE INH PRN (07:58)
[2019-01-30] MEDS ORDERED: HYDROcodone/ACETAMIN 5-325 MG* 1 TAB PO PRN ×2 (07:58)
[2019-01-30] MEDS ORDERED: diPHENhydraMINE IV* 50 MG/ML 1 ml VIAL (BENADRYL) IV PRN (07:58)
[2019-01-30] MEDS ORDERED: Ondansetron INJ* 2 MG/ML VIAL IV PRN (07:58)
[2019-01-30] MEDS ORDERED: DiMENhydriNATE IV* 50 MG/ML VIAL IV PUSH PRN (07:58)
[2019-01-30] MEDS ORDERED: HYDROcodone/ACETAMIN 5-325 MG* 1 TAB ONE ×2 (08:50→10:06)
[2019-01-30 10:28] VITALS: BP 141/86
--- NOTE | 2019-01-31 12:21 | OP ---
OPERATIVE REPORT: DATE OF OPERATION: 01/30/19 DATE OF : 89 SURGEON: Pool Calhoun MD ANESTHESIA: General anesthetic with endotracheal intubation. PRE-OP DIAGNOSIS: Multiparity, desires permanent surgical sterilization. POST-OP DIAGNOSIS: Multiparity, desires permanent surgical sterilization. OPERATIVE PROCEDURE: Laparoscopic tubal ligation with Filshie clips. ESTIMATED BLOOD LOSS: None. IV FLUIDS: She received 900 cc of IV crystalloid fluid. URINE OUTPUT: 500 cc of clear urine. FINDINGS: Exam under anesthesia revealed a normal external genitalia. Normal cervix and normal vagi nal mucosa and normal urethral meatus. The uterus sounded to 7 cm and was noted to be in an antevert ed position. Laparoscopically, the patient was noted to have a normal uterus, normal ovaries and tub es bilaterally and normal bowel and bladder. DESCRIPTION OF PROCEDURE: The patient was taken to the operating room where she was identified. She was placed on the operating table, where a general anesthetic with endotracheal intubation was obta ined without difficulty. She was then placed in a dorsal lithotomy position, prepped and draped in n ormal sterile fashion. Attention was then brought on to the patient's perineum, where the bladder was catheterized with a Davis catheter and drained of clear urine. A weighted speculum was then inserte d into the patient's vagina. The cervix was identified, grasped with a single-tooth tenaculum, it wa s then sounded to 7 cm and through the cervix, a [place] uterine manipulator was introduced. The b alloon in the manipulator was insufflated with 3 cc of normal saline. The single-tooth tenaculum was removed as well as the weighted speculum. Attention was then brought out to the patient's abdomen, where a 1 cm infraumbilical skin incision was made with a knife, carried through to the underlying la moo of fascia. The fascia was grasped with Tess clamps, brought up to the incision and then incise d between the Tess clamps, entry into the patient's abdomen was confirmed using a Monica clamp. The Tess clamps and the fascia were replaced with 0 Polysorb sutures and through this incision, a 10 m m blunt trocar was introduced. The balloon on the trocar was insufflated with 20 cc of air, and the patient's abdomen was then insufflated with CO2 gas. A survey of the patient's abdomen laparoscopica lly revealed findings as noted above. A second trocar was introduced 4 cm above the symphysis pubis in the midline under direct visualization. Through this trocar, a Filshie clip applicator was introd uced. The fallopian tubes were identified bilaterally. They were grasped and a Filshie clip was justino lied to the fallopian tubes with complete occlusion of the tubes bilaterally. At this point, all the instruments were removed from the patient's abdomen. The CO2 gas was let out of the patient's abdom en. The trocars were removed as well. The fascia on the umbilicus was closed with 0 Polysorb suture in a running fashion and the skin incisions were closed with 4-0 Monocryl in a subcuticular stitch. All the instruments from the patient's vagina including the uterine manipulator was removed as well as the Davis catheter. The patient tolerated the procedure well. Sponge, lap, and needle counts were correct x2. She was then transferred to recovery room area in stable condition. [id number]/[facility] #: [id number]
== END 2019-01-30 10:34 | disposition home or self-care (01) ==
LOC: OR 05:39
PROVIDERS: ATTEND Obstetrics & Gynecology
DX: Z30.2 Encounter for sterilization (principal); Z30.42 Encounter for surveillance of injectable contraceptive; Z87.891 Personal history of nicotine dependence
CPT/HCPCS: A9270-GY; C1776; J0330; J1100; J1885; J2250; J2405; J2704; J3010

== ENCOUNTER 2019-12-28 20:15 | Emergency (ER) | payer OTHER ==
[2019-12-28] MEDS ORDERED: Ondansetron INJ* 2 MG/ML VIAL IV ONE (21:18)
[2019-12-28] MEDS ORDERED: NS 0.9% 1000 ML** 1,000 ML IV ONE ×2 (21:18→22:25)
--- NOTE | 2019-12-28 21:19 | ED ---
Nausea/Vomiting/Diarrhea HPI - HPI Summary HPI Summary: Patient complains of nausea vomiting and diarrhea, intermittent abdominal cramping, decreased urinary frequency, headache starting this morning. Patient sent from urgent care to the ED for further evaluation. Abdominal pain worse just before vomiting, improved afterwards. Denies known fever, cough, sore throat, CP, SOB, vaginal symptoms. Medical history is none. Abdominal surgical history is none. - History of Current Complaint Chief Complaint: EDNauseaVomitDiarrh Stated Complaint: ABD PER PT Time Seen by Provider: 12/28/19 21:10 Hx Obtained From: Patient Hx Last Menstrual Period: 2 weeks ago Onset/Duration: Sudden Onset, Lasting Hours Timing: Intermittent Episodes Lasting: Severity Initially: Moderate Severity Currently: Moderate Pain Intensity: 6 Pain Scale Used: 0-10 Numeric Location: Discrete At: RUQ, Discrete At: LUQ, Epigastric Character: Cramping Aggravating Factor(s): Food Alleviating Factor(s): Vomiting, Bowel Movement Nausea/Vomiting Presence: Nauseated, Vomiting - Allergies/Home Medications Allergies/Adverse Reactions: Allergies Allergy/AdvReac Type Severity Reaction Status Date / Time No Known Allergies Allergy Verified 12/28/19 20:22 Home Medications: Home Medications Loratadine 10 mg PO DAILY 01/30/19 [History Confirmed 01/30/19] Ondansetron ODT TAB* [Zofran 4 MG Odt TAB*] 4 mg PO Q8H PRN 4 Days #14 tab.odt 12/28/19 [Rx] PMH/Surg Hx/FS Hx/Imm Hx Endocrine/Hematology History: Denies: Hx Diabetes, Hx Thyroid Disease Cardiovascular History: Denies: Hx Hypertension Respiratory History: Reports: Hx Asthma - as a child activity induced- not as an adult Denies: Hx Chronic Obstructive Pulmonary Disease (COPD) GI History: Denies: Hx Ulcer Musculoskeletal History: Denies: Hx Gout Sensory History: Denies: Hx Contacts or Glasses, Hx Hearing Aid Opthamlomology History: Denies: Hx Contacts or Glasses EENT History: Denies: Hx Deafness Neurological History: Denies: Hx Dementia - Cancer History Hx Chemotherapy: No Infectious Disease History: No Infectious Disease History: Denies: Hx Clostridium Difficile, Hx Hepatitis, Hx Human Immunodeficiency Virus (HIV), Hx of Known/Suspected MRSA, Hx Shingles, Hx Tuberculosis, Hx Known/ Suspected VRE, Hx Known/Suspected VRSA, History Other Infectious Disease, Traveled Outside the [place] in Last 30 Days - Family History Known Family History: Positive: Cardiac Disease, Diabetes, Other - pancreatic cancer - Social History Alcohol Use: Rare Substance Use Type: Reports: None Smoking Status (MU): Former Smoker Type: Cigarettes Amount Used/How Often: 1 pack/week Length of Time of Smoking/Using Tobacco: 5+ years Have You Smoked in the Last Year: No Review of Systems Constitutional: Negative Eyes: Negative ENT: Negative Cardiovascular: Negative Respiratory: Negative Positive: Abdominal Pain, Vomiting, Diarrhea, Nausea Positive: frequency Positive: Myalgia Skin: Negative Positive: Headache Psychological: Normal All Other Systems Reviewed And Are Negative: Yes Physical Exam Triage Information Reviewed: Yes Vital Signs On Initial Exam: Initial Vitals Temp Pulse Resp BP Pulse Ox 98.2 F 83 15 139/78 98 12/28/19 20:20 12/28/19 20:20 12/28/19 20:20 12/28/19 20:20 12/28/19 20:20 Vital Signs Reviewed: Yes Appearance: Positive: Well-Appearing Skin: Positive: Warm Head/Face: Positive: Normal Head/Face Inspection Eyes: Positive: Normal ENT: Positive: Normal ENT inspection Neck: Positive: Supple Respiratory/Lung Sounds: Positive: Clear to Auscultation Cardiovascular: Positive: Normal Abdomen Description: Positive: Other: - Mild tenderness left upper quadrant, right upper quadrant, epigastrium. Musculoskeletal: Positive: Normal Neurological: Positive: Normal Psychiatric: Positive: Normal AVPU Assessment: Alert - Jazmine Coma Scale Best Eye Response: 4 - Spontaneous Best Motor Response: 6 - Obeys Commands Best Verbal Response: 5 - Oriented Coma Scale Total: 15 Procedures - Sedation Patient Received Moderate/Deep Sedation with Procedure: No Diagnostics - Vital Signs Vital Signs Temp Pulse Resp BP Pulse Ox 12/28/19 20:20 98.2 F 83 15 139/78 98 - Laboratory Result Diagrams: 12/28/19 21:25 12/28/19 21:25 Lab Statement: Any lab studies that have been ordered have been reviewed, and results considered in the medical decision making process. Naus/Vom/Diarrhea Course/Dx - Course Course Of Treatment: Patient complains of nausea vomiting and diarrhea, intermittent abdominal cramping, decreased urinary frequency, headache starting this morning. Patient sent from urgent care to the ED for further evaluation. Abdominal pain worse just before vomiting, improved afterwards. Denies known fever, cough, sore throat, CP, SOB, vaginal symptoms. Medical history is none. Abdominal surgical history is none. Vital signs within normal limits. WBC 10.9. Labs otherwise unremarkable. Flu Negative. Nausea and vomiting controlled with fluids and IV Zofran. - Differential Dx/Diagnosis Provider Diagnosis: Viral syndrome, Nausea & vomiting Discharge ED - Sign-Out/Discharge Documenting (check all that apply): Patient Departure - Discharge Plan Condition: Stable Disposition: HOME Prescriptions: Ondansetron ODT TAB* [Zofran 4 MG Odt TAB*] 4 mg PO Q8H PRN 4 Days #14 tab.odt PRN Reason: Nausea Patient Education Materials: Acute Nausea and Vomiting (ED) Referrals: Deneen Garcia MD [Primary Care Provider] - Additional Instructions: Take zofran as directed for nausea and vomiting. Drink plenty of fluids to maintain hydration. Follow-up with primary care. Return to the ED for any new or worsening symptoms. - Billing Disposition and Condition Condition: STABLE Disposition: Home
[2019-12-28 21:32] LABS: ABS Lymphocytes 1.5 10^3/ul (1.0-4.8); ABS Monocytes 0.6 10^3/ul (0-0.8); ABS Neutrophils 8.8 10^3/ul (1.5-7.7); Eosinophil % 0.1 %; Hematocrit 42 % (35-47); Hemoglobin 14.7 g/dL (12.0-16.0); Lymphocyte % 13.6 %; Mean Corpuscular HGB Conc 35 g/dL (31-36); Mean Corpuscular Hemoglobin 28 pg (27-31); Mean Corpuscular Volume 80 fL (80-97); Mean Platelet Volume 9.1 fL (7.4-10.4); Platelet Count 280 10^3/uL (150-450); Red Blood Count 5.27 10^6 /uL (3.70-4.87); Red Cell Distribution Width 16 % (10-15); White Blood Count 10.9 10^3/uL (3.5-10.8)
[2019-12-28 22:13] LABS: ALT 17 U/L (7-52); AST 18 U/L (13-39); Albumin 4.4 g/dL (3.2-5.2); Albumin/Globulin Ratio 1.4 (1-3); Alkaline Phosphatase 69 U/L (34-104); Anion Gap 11 mmol/L (2-11); BUN/Creatinine Ratio 29.1 (8-20); Blood Urea Nitrogen 23 mg/dL (6-24); CO2 Carbon Dioxide 23 mmol/L (22-32); Calcium 9.5 mg/dL (8.6-10.3); Chloride 103 mmol/L (101-111); EGFR African American 105.6 (>60); EGFR Non-African American 87.3 (>60); Globulin 3.1 g/dL (2-4); Glucose 96 mg/dL (70-100); Potassium 3.9 mmol/L (3.5-5.0); Sodium 137 mmol/L (135-145); Total Protein 7.5 g/dL (6.4-8.9)
[2019-12-28 22:20] LABS: HCG Pregnancy < 0.60 mIU/mL
[2019-12-28 23:23] LABS: Urine Appearance Clear; Urine Bilirubin Negative (Negative); Urine Blood Negative (Negative); Urine Color Yellow; Urine Glucose Negative (Negative); Urine Ketones 2+ (Negative); Urine Nitrite Negative (Negative); Urine Protein 1+(30 mg/dL) (Negative); Urine Specific Gravity 1.029 (1.010-1.030); Urine Urobilinogen Negative (Negative)
[2019-12-28 23:25] LABS: Urine Bacteria Absent (Absent); Urine Red Blood Cell Trace(0-2/hpf) (Absent); Urine Squamous Epithelial Cell Present (Absent); Urine White Blood Cell Trace(0-5/hpf) (Absent)
[2019-12-28 23:39] LABS: Influenza A Molecular Negative (Negative); Influenza B Molecular Negative (Negative)
[2019-12-28] MEDS ORDERED: Ondansetron ODT TAB* 4 MG PO ONE (23:46)
[2019-12-29 00:05] VITALS: BP 99/55
== END 2019-12-29 00:05 | disposition home or self-care (01) ==
LOC: ED 20:15
DX: B34.9 Viral infection, unspecified (principal); R11.2 Nausea with vomiting, unspecified; R10.812 Left upper quadrant abdominal tenderness; R10.811 Right upper quadrant abdominal tenderness; R10.816 Epigastric abdominal tenderness; Z87.891 Personal history of nicotine dependence
CPT/HCPCS: 36415; 80053; 81003; 81015; 83690; 84702; 85025; 86140; 87086; 96361; 96374; 99283; A9270-GY; J2405